=== PATIENT | male | born 1985 | race Caucasian/White ===

== ENCOUNTER 2016-07-27 00:30 | Emergency (ER) | payer MEDICAID ==
[~2016-07-27] VITALS: Ht 190.5 cm; Wt 100.0 kg
[2016-07-27 00:47] VITALS: BP 112/78
== END 2016-07-27 01:35 | disposition home or self-care (01) ==
LOC: ED 01:29
DX: B35.3 Tinea pedis (principal)
CPT/HCPCS: 99282